=== PATIENT | male | born 1995 | race African-American/Black ===

== ENCOUNTER 2018-12-30 14:05 | Emergency (ER) | payer OTHER ==
[2018-12-30] MEDS ORDERED: Famotidine 20 MG TAB ONE (14:44)
[2018-12-30] MEDS ORDERED: diphenhydrAMINE 25 MG CAP ONE (14:44)
[2018-12-30 15:04] LABS: #Lymphocytes 1.1 thou/uL (1.20-3.40); #Monocytes 0.5 thou/uL (0.11-0.59); #Neutrophils 4.1 thou/uL (1.40-6.50); %Basophils 0.6 % (0.0-1.0); %Eosinophils 0.1 % (0.0-10.0); %Lymphocytes 18.8 % (21.0-51.0); %Monocytes 8.1 % (0.0-10.0); %Neutrophils 72.4 % (42.0-75.0); Hemoglobin 15.6 g/dL (14.0-18.0); Mean Corpuscular HGB CONC 33.7 g/dL (32.0-36.0); Mean Corpuscular Hemoglobin 30.4 pg (27.0-31.0); Mean Corpuscular Volume 90.4 fL (78.0-98.0); Mean Platelet Volume 6.5 fL (7.4-10.4); Platelet Count 211 thou/uL (130-400); RBC Distribution Width 11.1 % (11.5-14.5); Red Blood Cell (RBC) Count 5.13 mill/uL (4.70-6.10); White Blood Cell (WBC) Count 5.7 thou/uL (4.8-10.8)
[2018-12-30 15:14] LABS: Anion Gap 13 mmol/L (10-20); BUN (Urea Nitrogen) 12 mg/dL (8.9-20.6); CRP (Inflammatory) 0.55 mg/dL (= or < 0.5); Calc. Creatinine Clearance 0 mL/min (70-130); Calcium 9.3 mg/dL (7.8-10.44); Carbon Dioxide 24 mmol/L (22-29); Chloride 105 mmol/L (98-107); Estimated GFR-MDRD Greater than 90; Glucose 91 mg/dL (70-105); Sodium 138 mmol/L (136-145)
[2018-12-30] MEDS ORDERED: predniSONE 20 MG TAB ONE (16:37)
== END 2018-12-30 16:46 ==
LOC: NAV ERS 14:05
DX: T78.40XA Allergy, unspecified, initial encounter (principal); J45.909 Unspecified asthma, uncomplicated; F90.9 Attention-deficit hyperactivity disorder, unspecified type
CPT/HCPCS: 36415; 80048; 85025; 86140; 99283; J7512; Q0163